=== PATIENT | male | born 1990 | race Caucasian/White ===

== ENCOUNTER 2019-11-22 12:06 | Emergency (ER) | payer SELFPAY ==
[2019-11-22] MEDS ORDERED: Aspirin 81 MG Tab.Chew PO ONE (12:29)
[2019-11-22] MEDS ORDERED: Sodium Chloride 0.9% 1,000 ML IV ONE (12:30)
--- NOTE | 2019-11-22 12:55 | EDM.PDOC ---
ED HPI GENERAL MEDICAL PROBLEM - General Chief Complaint: Chest Pain Stated Complaint: PAIN IN ARM Time Seen by Provider: 11/22/19 12:15 Source of Information: Reports: Patient History Limitations: Reports: No Limitations - History of Present Illness INITIAL COMMENTS - FREE TEXT/NARRATIVE: HISTORY AND PHYSICAL: History of present illness: Patient is a 28-year-old male who presents to the ED today with concern of an episode of chest pain that occurred at about 8 this morning. Patient states the episode lasted about 20 minutes and then resolved. Patient states since he woke up this morning he has had some left shoulder discomfort and is not sure if it is related to the chest pain or not. Patient states he did not have any trauma or injury to the shoulder and has been able to use it without pain or difficulty. Patient denies any health history or any current chest pain. Patient denies fever, chills, shortness of breath, or cough. Denies headache, neck stiff ness, change in vision, syncope, or near syncope. Denies nausea, vomiting, abdominal pain, diarrhea, constipation, or dysuria. Has not noted any blood in urine or stool. Patient has been eating and drinking appropriately. Review of systems: As per history of present illness and below otherwise all systems reviewed and negative. Past medical history: As per history of present illness and as reviewed below otherwise noncontributory. Surgical history: As per history of present illness and as reviewed below otherwise noncontributory. Social history: See social history for further information Family history: As per history of present illness and as reviewed below otherwise noncontributory. Physical exam: General: Patient is alert, oriented, and in no acute distress. Patient sitting comfortably on exam table. HEENT: Atraumatic, normocephalic, pupils equal and reactive bilaterally, negative for conjunctival pallor or scleral icterus, mucous membranes moist, TMs normal bilaterally, throat clear, neck supple, nontender, trachea midline. No drooling or trismus noted. No meningeal signs. No hot potato voice noted. Lungs: Clear to auscultation, breath sounds equal bilaterally, chest nontender. Heart: S1S2, regular rate and rhythm without overt murmur Abdomen: Soft, nondistended, nontender. Negative for masses or hepatosplenomegaly. Negative for costovertebral tenderness. Pelvis: Stable nontender. Genitourinary: Deferred. Rectal: Deferred. Skin: Intact, warm, dry. No lesions or rashes noted. Extremities: Atraumatic, negative for cords or calf pain. Neurovascular unremarkable. Patient has full range of motion of bilateral upper and lower extremities without pain or difficulty. Neuro: Awake, alert, oriented. Cranial nerves II through XII unremarkable. Cerebellum unremarkable. Motor and sensory unremarkable throughout. Exam nonfocal. Notes: Discussed importance for follow-up with primary care provider. Voices understanding and is agreeable to plan of care. Denies any further questions or concerns at this time. Diagnostics: CBC, CMP, UA, EKG, CXR, Troponin Therapeutics: ASA Prescription: None Impression: Atypical chest pain episode Shoulder pain, left Plan: 1. You can alternate ibuprofen and Tylenol as directed for pain and discomfort. 2. Follow-up with your primary care provider as discussed. Return to the ED as needed and as discussed. Definitive disposition and diagnosis as appropriate pending reevaluation and review of above. chest Pain Score (Numeric/FACES): 3 - Related Data Allergies Allergy/AdvReac Type Severity Reaction Status Date / Time No Known Allergies Allergy Verified 11/22/19 12:33 Home Meds: Home Meds . [No Known Home Meds] 11/22/19 [History] Past Medical History - Past Health History Medical/Surgical History: Denies Medical/Surgical History - Infectious Disease History Infectious Disease History: Reports: None Social & Family History - Family History Family Medical History: Noncontributory - Tobacco Use Smoking Status *Q: Current Every Day Smoker Years of Tobacco use: 10 Packs/Tins Daily: 1 - Caffeine Use Caffeine Use: Reports: Coffee - Recreational Drug Use Recreational Drug Use: No ED ROS GENERAL - Review of Systems Review Of Systems: Comprehensive ROS is negative, except as noted in HPI. ED EXAM, GENERAL - Physical Exam Exam: See Below (see dictation) Course - Vital Signs Last Recorded V/S: Last Vital Signs Temp 97.1 F 11/22/19 12:33 Pulse 106 H 11/22/19 12:33 Resp 16 11/22/19 12:33 BP 140/84 11/22/19 12:33 Pulse Ox 98 11/22/19 12:33 - Orders/Labs/Meds Orders: Active Orders 24 hr Category Date Time Status EKG Documentation Completion [RC] STAT Care 11/22/19 12:26 Active Labs: Laboratory Tests 11/22/19 11/22/19 11/22/19 Range/Units 12:40 12:40 12:48 WBC 7.30 (4.0-11.0) K/uL RBC 5.05 (4.50-5.90) M/uL Hgb 16.8 (13.0-17.0) g/dL Hct 49.2 (38.0-50.0) % MCV 97.4 (80.0-98.0) fL MCH 33.3 H (27.0-32.0) pg MCHC 34.1 (31.0-37.0) g/dL RDW Std Deviation 46.2 (28.0-62.0) fl RDW Coeff of Florencio 13 (11.0-15.0) % Plt Count 206 (150-400) K/uL MPV 11.00 (7.40-12.00) fL Neut % (Auto) 61.2 (48.0-80.0) % Lymph % (Auto) 28.5 (16.0-40.0) % Howell % (Auto) 8.6 (0.0-15.0) % Eos % (Auto) 1.4 (0.0-7.0) % Baso % (Auto) 0.3 (0.0-1.5) % Neut # (Auto) 4.5 (1.4-5.7) K/uL Lymph # (Auto) 2.1 (0.6-2.4) K/uL Howell # (Auto) 0.6 (0.0-0.8) K/uL Eos # (Auto) 0.1 (0.0-0.7) K/uL Baso # (Auto) 0.0 (0.0-0.1) K/uL Nucleated RBC % 0.0 /100WBC Nucleated RBCs # 0 K/uL Sodium 138 (136-148) mmol/L Potassium 4.0 (3.5-5.1) mmol/L Chloride 101 (98-107) mmol/L Carbon Dioxide 28.0 (21.0-32.0) mmol/L BUN 11 (7.0-18.0) mg/dL Creatinine 0.9 (0.8-1.3) mg/dL Est Cr Clr Drug Dosing 140.81 mL/min Estimated GFR (MDRD) > 60.0 ml/min Glucose 104 (74-106) mg/dL Calcium 8.5 (8.5-10.1) mg/dL Total Bilirubin 0.3 (0.2-1.0) mg/dL AST 29 (15-37) IU/L ALT 43 (14-63) IU/L Alkaline Phosphatase 81 (46-116) U/L Troponin I < 0.050 (0.000-0.056) ng/mL Total Protein 7.9 (6.4-8.2) g/dL Albumin 3.8 (3.4-5.0) g/dL Globulin 4.1 H (2.6-4.0) g/dL Albumin/Globulin Ratio 0.9 (0.9-1.6) Urine Color YELLOW Urine Appearance CLEAR Urine pH 7.5 (5.0-8.0) Ur Specific [place] 1.020 (1.001-1.035) Urine Protein NEGATIVE (NEGATIVE) mg/dL Urine Glucose (UA) NEGATIVE (NEGATIVE) mg/dL Urine Ketones NEGATIVE (NEGATIVE) mg/dL Urine Occult Blood NEGATIVE (NEGATIVE) Urine Nitrite NEGATIVE (NEGATIVE) Urine Bilirubin NEGATIVE (NEGATIVE) Urine Urobilinogen 0.2 (<2.0) EU/dL Ur Leukocyte Esterase NEGATIVE (NEGATIVE) Meds: Medications Discontinued Medications Generic Name Dose Route Start Last Admin Trade Name Freq PRN Reason Stop Dose Admin Aspirin 324 mg 11/22/19 12:29 11/22/19 12:36 Aspirin PO 11/22/19 12:30 324 mg ONETIME ONE Administration Sodium Chloride 1,000 mls @ 999 mls/hr 11/22/19 12:30 11/22/19 12:36 Normal Saline IV 11/22/19 13:30 999 mls/hr STAT ONE Administration Departure - Departure Time of Disposition: 13:40 Disposition: Home, Self-Care 01 Clinical Impression: Chest pain Qualifiers: Chest pain type: unspecified Qualified Code(s): R07.9 - Chest pain, unspecified Left shoulder pain Qualifiers: Chronicity: acute Qualified Code(s): M25.512 - Pain in left shoulder - Discharge Information Referrals: PCP,Not In Area [Primary Care Provider] - Forms: ED Department Discharge Additional Instructions: The following information is given to patients seen in the emergency department who are being discharged to home. This information is to outline your options for follow-up care. We provide all patients seen in our emergency department with a follow-up referral. The need for follow-up, as well as the timing and circumstances, are variable depending upon the specifics of your emergency department visit. If you don't have a primary care physician on staff, we will provide you with a referral. We always advise you to contact your personal physician following an emergency department visit to inform them of the circumstance of the visit and for follow-up with them and/or the need for any referrals to a consulting specialist. The emergency department will also refer you to a specialist when appropriate. This referral assures that you have the opportunity for follow-up care with a specialist. All of these measure are taken in an effort to provide you with optimal care, which includes your follow-up. Under all circumstances we always encourage you to contact your private physician who remains a resource for coordinating your care. When calling for follow-up care, please make the office aware that this follow-up is from your recent emergency room visit. If for any reason you are refused follow-up, please contact the [facility] Emergency Department at and asked to speak to the emergency department charge nurse. [facility] Primary [facility] [address] [place] [address] [address] [facility] Specialty Care - [facility] Professional Building [address] [facility] [place] [address] 1. You can alternate ibuprofen and Tylenol as directed for pain and discomfort. 2. Follow-up with your primary care provider/orthopedic provider as discussed. Return to the ED as needed and as discussed. Sepsis Event Note - Focused Exam Vital Signs: Vital Signs Temp Pulse Resp BP Pulse Ox 11/22/19 12:33 97.1 F 106 H 16 140/84 98 Date Exam was Performed: 11/22/19 Time Exam was Performed: 13:39 - My Orders Last 24 Hours: My Active Orders 11/22/19 12:26 EKG Documentation Completion [RC] STAT - Assessment/Plan Last 24 Hours: My Active Orders 11/22/19 12:26 EKG Documentation Completion [RC] STAT
[2019-11-22 13:11] LABS: BLOOD UREA NITROGEN,BUN 11 mg/dL (7.0-18.0); CHLORIDE,CL 101 mmol/L (98-107); GLUCOSE RANDOM 104 mg/dL (74-106); SODIUM,NA 138 mmol/L (136-148)
--- NOTE | 2019-11-22 13:39 | CR ---
INDICATION: Shortness of breath TECHNIQUE: Chest radiograph 1 view on 2 films COMPARISON: None FINDINGS: Mediastinum: The mediastinum is normal in appearance. The heart silhouette is normal in size and morphology. Lung: Both lungs are unremarkable in appearance. No sign of pleural effusion seen. No pneumothorax is identified. Bone and Soft tissue: Unremarkable for age. IMPRESSION: 1. No acute cardiopulmonary disease is seen. Dictated by: Magen Bonilla MD @ 11/22/2019 13:37:12 (Electronically Signed)
== END 2019-11-22 13:58 | disposition home or self-care (01) ==
LOC: MW.ED 12:06
DX: R07.89 Other chest pain (principal); M25.512 Pain in left shoulder; F17.210 Nicotine dependence, cigarettes, uncomplicated
CPT/HCPCS: 36415; 71045; 80053; 81003; 84484; 85025; 93005; 96360; 99285; A9270; J7030; 99283

== ENCOUNTER 2020-02-21 13:26 | Emergency (ER) | payer SELFPAY ==
[2020-02-21 14:53] LABS: ACETAMINOPHEN <2.0 ug/mL
[2020-02-21 14:57] LABS: BLOOD UREA NITROGEN,BUN 13 mg/dL (7.0-18.0); CARBON DIOXIDE,CO2 22.6 mmol/L (21.0-32.0); CHLORIDE,CL 101 mmol/L (98-107); GLUCOSE RANDOM 88 mg/dL (74-106); POTASSIUM,K 3.9 mmol/L (3.5-5.1); SODIUM,NA 141 mmol/L (136-148)
[2020-02-21] MEDS ORDERED: Nicotine 21 MG/24 Hr Patch TRDERM ONE (15:24)
--- NOTE | 2020-02-21 18:33 | EDM.PDOC ---
<Jarrell Alejo - Last Filed: 02/21/20 20:25> ED HPI GENERAL MEDICAL PROBLEM - General Chief Complaint: Behavioral/Psych Stated Complaint: MENTAL EVAL Time Seen by Provider: 02/21/20 13:31 - History of Present Illness INITIAL COMMENTS - FREE TEXT/NARRATIVE: Patient is 29 old male with alcohol use presenting with suicidal ideations. Patient was signed out from daytime attending pending psychiatric placement and lab reevaluation. Patient's labs were reviewed and did not demonstrate any acute abnormalities requiring intervention. Patient was examined at bedside and still endorsing active suicidal ideations without specific plan. Patient is not homicidal or hearing voices. There is no evidence of alcohol withdrawal at the time of my examination. Numerous psychiatric facilities were called overnight and [facility] is willing to accept the patient in the morning once his alcohol level is 0 and if the patient wishes to come voluntarily for treatment. I spoke with Javier Chavez the nurse practitioner for psychiatry who informed me of these facilities policies and procedures. Another potential option is to transfer the patient to [facility] however this will also require the patient to stay overnight and they hospital for morning time transfer. The current plan is for the patient to be kept on a one-to-one observation for suicidal ideations. Patient is not requiring medication or restraints at this time. Since patient is on psychiatric hold, he will be monitored for elopement. In addition, CIWA score will be calculated every 4 hours throughout the night for evidence of alcohol withdrawal. Patient's current CIWA is 0. Interventions will be performed as necessary if evidence of alcohol withdrawal present themselves. At this time, the patient is cooperative with plan for morning transfer. Patient is currently medically stable for psychiatric hold. - Related Data Allergies Allergy/AdvReac Type Severity Reaction Status Date / Time No Known Allergies Allergy Verified 02/21/20 13:34 Home Meds: Home Meds . [No Known Home Meds] 11/22/19 [History] Course - Vital Signs Last Recorded V/S: Last Vital Signs Temp 36.4 C 02/21/20 13:42 Pulse 78 02/22/20 08:30 Resp 18 02/22/20 08:30 BP 140/87 02/22/20 08:30 Pulse Ox 99 02/22/20 08:30 - Orders/Labs/Meds Labs: Laboratory Tests 02/21/20 02/21/20 02/21/20 Range/Units 13:55 14:13 14:13 WBC 8.17 (4.0-11.0) K/uL RBC 4.88 (4.50-5.90) M/uL Hgb 16.5 (13.0-17.0) g/dL Hct 47.8 (38.0-50.0) % MCV 98.0 (80.0-98.0) fL MCH 33.8 H (27.0-32.0) pg MCHC 34.5 (31.0-37.0) g/dL RDW Std Deviation 46.1 (28.0-62.0) fl RDW Coeff of Florencio 13 (11.0-15.0) % Plt Count 216 (150-400) K/uL MPV 10.50 (7.40-12.00) fL Neut % (Auto) 69.3 (48.0-80.0) % Lymph % (Auto) 25.1 (16.0-40.0) % [place] % (Auto) 5.4 (0.0-15.0) % Eos % (Auto) 0.1 (0.0-7.0) % Baso % (Auto) 0.1 (0.0-1.5) % Neut # (Auto) 5.7 (1.4-5.7) K/uL Lymph # (Auto) 2.1 (0.6-2.4) K/uL [place] # (Auto) 0.4 (0.0-0.8) K/uL Eos # (Auto) 0.0 (0.0-0.7) K/uL Baso # (Auto) 0.0 (0.0-0.1) K/uL Nucleated RBC % 0.0 /100WBC Nucleated RBCs # 0 K/uL Sodium 141 (136-148) mmol/L Potassium 3.9 (3.5-5.1) mmol/L Chloride 101 (98-107) mmol/L Carbon Dioxide 22.6 (21.0-32.0) mmol/L BUN 13 (7.0-18.0) mg/dL Creatinine 0.9 (0.8-1.3) mg/dL Est Cr Clr Drug Dosing TNP Estimated GFR (MDRD) > 60.0 ml/min Glucose 88 (74-106) mg/dL Calcium 8.3 L (8.5-10.1) mg/dL Total Bilirubin 0.6 (0.2-1.0) mg/dL AST 25 (15-37) IU/L ALT 34 (14-63) IU/L Alkaline Phosphatase 81 (46-116) U/L Total Protein 8.4 H (6.4-8.2) g/dL Albumin 4.3 (3.4-5.0) g/dL Globulin 4.1 H (2.6-4.0) g/dL Albumin/Globulin Ratio 1.1 (0.9-1.6) Free T4 (0.76-1.46) ng/dL TSH 3rd Generation 0.29 L (0.36-3.74) uIU/mL Salicylates 3.1 (0-20) mg/dL Urine Opiates Screen NEGATIVE (NEGATIVE) Ur Oxycodone Screen NEGATIVE (NEGATIVE) Urine Methadone Screen NEGATIVE (NEGATIVE) Acetaminophen <2.0 ug/mL Ur Barbiturates Screen NEGATIVE (NEGATIVE) Ur Phencyclidine Scrn NEGATIVE (NEGATIVE) Ur Amphetamine Screen NEGATIVE (NEGATIVE) U Methamphetamines Scrn NEGATIVE (NEGATIVE) U Benzodiazepines Scrn NEGATIVE (NEGATIVE) U Cocaine Metab Screen POSITIVE (NEGATIVE) U Marijuana (THC) Screen NEGATIVE (NEGATIVE) Ethyl Alcohol 295 mg/dL 02/21/20 02/21/20 02/21/20 Range/Units 16:06 18:13 18:39 WBC 7.02 (4.0-11.0) K/uL RBC 4.76 (4.50-5.90) M/uL Hgb 16.1 (13.0-17.0) g/dL Hct 46.4 (38.0-50.0) % MCV 97.5 (80.0-98.0) fL MCH 33.8 H (27.0-32.0) pg MCHC 34.7 (31.0-37.0) g/dL RDW Std Deviation 46.3 (28.0-62.0) fl RDW Coeff of Florencio 13 (11.0-15.0) % Plt Count 213 (150-400) K/uL MPV 10.70 (7.40-12.00) fL Neut % (Auto) 63.5 (48.0-80.0) % Lymph % (Auto) 31.5 (16.0-40.0) % [place] % (Auto) 4.8 (0.0-15.0) % Eos % (Auto) 0.1 (0.0-7.0) % Baso % (Auto) 0.1 (0.0-1.5) % Neut # (Auto) 4.5 (1.4-5.7) K/uL Lymph # (Auto) 2.2 (0.6-2.4) K/uL [place] # (Auto) 0.3 (0.0-0.8) K/uL Eos # (Auto) 0.0 (0.0-0.7) K/uL Baso # (Auto) 0.0 (0.0-0.1) K/uL Nucleated RBC % 0.0 /100WBC Nucleated RBCs # 0 K/uL Sodium (136-148) mmol/L Potassium (3.5-5.1) mmol/L Chloride (98-107) mmol/L Carbon Dioxide (21.0-32.0) mmol/L BUN (7.0-18.0) mg/dL Creatinine (0.8-1.3) mg/dL Est Cr Clr Drug Dosing Estimated GFR (MDRD) ml/min Glucose (74-106) mg/dL Calcium (8.5-10.1) mg/dL Total Bilirubin (0.2-1.0) mg/dL AST (15-37) IU/L ALT (14-63) IU/L Alkaline Phosphatase (46-116) U/L Total Protein (6.4-8.2) g/dL Albumin (3.4-5.0) g/dL Globulin (2.6-4.0) g/dL Albumin/Globulin Ratio (0.9-1.6) Free T4 (0.76-1.46) ng/dL TSH 3rd Generation (0.36-3.74) uIU/mL Salicylates 3.2 (0-20) mg/dL Urine Opiates Screen NEGATIVE (NEGATIVE) Ur Oxycodone Screen NEGATIVE (NEGATIVE) Urine Methadone Screen NEGATIVE (NEGATIVE) Acetaminophen ug/mL Ur Barbiturates Screen NEGATIVE (NEGATIVE) Ur Phencyclidine Scrn NEGATIVE (NEGATIVE) Ur Amphetamine Screen NEGATIVE (NEGATIVE) U Methamphetamines Scrn NEGATIVE (NEGATIVE) U Benzodiazepines Scrn NEGATIVE (NEGATIVE) U Cocaine Metab Screen POSITIVE (NEGATIVE) U Marijuana (THC) Screen NEGATIVE (NEGATIVE) Ethyl Alcohol 261 mg/dL 02/21/20 Range/Units 18:39 WBC (4.0-11.0) K/uL RBC (4.50-5.90) M/uL Hgb (13.0-17.0) g/dL Hct (38.0-50.0) % MCV (80.0-98.0) fL MCH (27.0-32.0) pg MCHC (31.0-37.0) g/dL RDW Std Deviation (28.0-62.0) fl RDW Coeff of Florencio (11.0-15.0) % Plt Count (150-400) K/uL MPV (7.40-12.00) fL Neut % (Auto) (48.0-80.0) % Lymph % (Auto) (16.0-40.0) % [place] % (Auto) (0.0-15.0) % Eos % (Auto) (0.0-7.0) % Baso % (Auto) (0.0-1.5) % Neut # (Auto) (1.4-5.7) K/uL Lymph # (Auto) (0.6-2.4) K/uL [place] # (Auto) (0.0-0.8) K/uL Eos # (Auto) (0.0-0.7) K/uL Baso # (Auto) (0.0-0.1) K/uL Nucleated RBC % /100WBC Nucleated RBCs # K/uL Sodium 141 (136-148) mmol/L Potassium 3.7 (3.5-5.1) mmol/L Chloride 102 (98-107) mmol/L Carbon Dioxide 21.8 (21.0-32.0) mmol/L BUN 12 (7.0-18.0) mg/dL Creatinine 0.8 (0.8-1.3) mg/dL Est Cr Clr Drug Dosing 152.59 Estimated GFR (MDRD) > 60.0 ml/min Glucose 76 (74-106) mg/dL Calcium 8.5 (8.5-10.1) mg/dL Total Bilirubin (0.2-1.0) mg/dL AST (15-37) IU/L ALT (14-63) IU/L Alkaline Phosphatase (46-116) U/L Total Protein (6.4-8.2) g/dL Albumin (3.4-5.0) g/dL Globulin (2.6-4.0) g/dL Albumin/Globulin Ratio (0.9-1.6) Free T4 0.99 (0.76-1.46) ng/dL TSH 3rd Generation (0.36-3.74) uIU/mL Salicylates 2.9 (0-20) mg/dL Urine Opiates Screen (NEGATIVE) Ur Oxycodone Screen (NEGATIVE) Urine Methadone Screen (NEGATIVE) Acetaminophen <2.0 ug/mL Ur Barbiturates Screen (NEGATIVE) Ur Phencyclidine Scrn (NEGATIVE) Ur Amphetamine Screen (NEGATIVE) U Methamphetamines Scrn (NEGATIVE) U Benzodiazepines Scrn (NEGATIVE) U Cocaine Metab Screen (NEGATIVE) U Marijuana (THC) Screen (NEGATIVE) Ethyl Alcohol 208 mg/dL Meds: Medications Discontinued Medications Generic Name Dose Route Start Last Admin Trade Name Tiffany PRN Reason Stop Dose Admin Nicotine 21 mg 02/21/20 15:24 02/21/20 15:39 Habitrol TRDERM 02/21/20 15:25 21 mg ONETIME ONE Administration Nicotine 21 mg 02/22/20 08:29 02/22/20 08:45 Habitrol TRDERM 02/22/20 08:30 21 mg ONETIME ONE Administration Departure - Departure Disposition: DC[facility] 05 Clinical Impression: Suicidal ideation, Alcohol intoxication - Discharge Information Referrals: PCP,None [Primary Care Provider] - Forms: ED Department Discharge Sepsis Event Note - Focused Exam Vital Signs: Vital Signs Pulse Resp BP Pulse Ox 02/22/20 08:30 78 18 140/87 99 02/22/20 02:00 81 109/65 02/22/20 01:00 82 16 119/67 95 02/22/20 00:00 94 100/54 L 02/21/20 23:00 97 16 102/54 L 95 02/21/20 22:00 91 17 113/63 97 Date Exam was Performed: 02/21/20 Time Exam was Performed: 20:25 <Walter Ring - Last Filed: 02/22/20 09:08> ED HPI GENERAL MEDICAL PROBLEM - History of Present Illness INITIAL COMMENTS - FREE TEXT/NARRATIVE: HPI 29-year-old male presents with acute on chronic suicidal ideation and poorly articulate plans for self-harm. Patient reports long-standing depression, anxiety, and thoughts of harming himself. Patient reports that his family recently left him (would not further elaborate), and that he lost his job in the [employer]. Patient reports that he has thought of shooting himself. Patient drinks daily. Denies further drug use. Denies auditory or visual hallucinations. Patient suspects that he may have untreated anxiety. No prior mental health care hospitalizations or psychiatric care. Denies known medical conditions or current treatment for a medical conditions. Patient is originally from [place], no strong social supports at home. Patient notes that he recently sustained 2 scratches on his left hand from his cat. M/S/F/SocHx notable for: we see HPI; remainder reviewed with patient and in chart. ROS: Negative constitutional, eye, cardiovascular, pulmonary, GI, , MSK, skin , neurologic, psychiatric, endocrine unless noted in the HPI. Exam HR 117, RR 18, BP 134/78, T 36.4C, SaO2 95% on room air. Gen: Pleasant, nontoxic-appearing, resting comfortably. HEENT: normocephalic, atraumatic, PEERL, EOMI. Resp: clear to auscultation bilaterally, unlabored respirations with a normal work of breathing Card: regular rate and rhythm GI: non-tender, non-distended. MSK: No visible deformities, strength and tone within normal limits. Skin: superficial scratches on the base of the left thumb on the dorsum of the hand, no surrounding erythema, warmth, tenderness otherwise normal color with no visible lesions. Neuro: alert and oriented 3, no facial asymmetry. Mild slurring of speech. Psych: depressed mood and flat affect. Labs (initial): WBC 8.2, HB 16.5, sodium 141, potassium 3.9, AST 25, ALT 34, TSH 0.29, acetaminophen <2.0, EtOH (2:13 PM) 295, (5:56 PM) 261. UDS with cocaine metabolites. salicylates (2:13 PM) 3.1, salicylates (4:06 PM) 3.2. Labs (repeat): pending. MDM Previous chart, nursing note, and vitals reviewed. A: 29-year-old male presents with acute on chronic suicidal ideation and poorly articulate plans for self-harm. DDx: suicidal ideation, suicidal gesture, depression, overdose, intoxication, infectious process, thyroid, electrolyte or hematologic abnormalities. Medical evaluation: history and exam consistent with mild impairment from alcohol, this is congruent with labs, no evidence of an active infectious process. Acetaminophen levels are below detection, salicylate is detectable, patient denies taking any salicylate containing compounds, repeat approximately one hour later with a mild increase in salicylates. TSH is minimally below the normal limit, however the patient is without a hyperthyroid toxidrome. UDS notable for cocaine metabolites, this is not consistent with the patient stated history of no drug use (repeat history there with patient saying he uses Kratom) . CBC and BMP were reviewed and were within acceptable limits. Due to the patients significant psychosocial stressors, intoxication, suicidal ideation with a plan (minimized with full engagement with treatment), and concern for lack of candor, the patient is felt to be at moderate to high risk, and he was placed on a mental health hold. While in the emergency department the patient was placed on mental health hold, the patient eloped from the department and was returned to the ED by law enforcement. Labs and a focused history and exam were repeated. ED Course: repeat laboratory studies pending at time of patient care transfer to the overnight ED physician. Impression: suicidal ideation, intoxication. Past Medical History - Past Health History Medical/Surgical History: Denies Medical/Surgical History Psychiatric History: Reports: Anxiety, Depression - Infectious Disease History Infectious Disease History: Reports: None Social & Family History - Family History Family Medical History: Noncontributory - Tobacco Use Smoking Status *Q: Current Every Day Smoker Years of Tobacco use: 11 Packs/Tins Daily: 1 - Caffeine Use Caffeine Use: Reports: Coffee, Energy Drinks, Soda - Alcohol Use Days Per Week of Alcohol Use: 7 Number of Drinks Per Day: 6 Total Drinks Per Week: 42 - Recreational Drug Use Recreational Drug Use: No ED ROS GENERAL - Review of Systems Review Of Systems: See Below ED EXAM, GENERAL - Physical Exam Exam: See Below Departure - Departure Time of Disposition: 18:32 Sepsis Event Note - Evaluation Sepsis Screening Result: No Definite Risk - Focused Exam Date Exam was Performed: 02/22/20 Time Exam was Performed: 09:08
[2020-02-21 19:15] LABS: BLOOD UREA NITROGEN,BUN 12 mg/dL (7.0-18.0); CARBON DIOXIDE,CO2 21.8 mmol/L (21.0-32.0); CHLORIDE,CL 102 mmol/L (98-107); GLUCOSE RANDOM 76 mg/dL (74-106); POTASSIUM,K 3.7 mmol/L (3.5-5.1); SODIUM,NA 141 mmol/L (136-148)
[2020-02-21 19:16] LABS: ACETAMINOPHEN <2.0 ug/mL
[2020-02-22] MEDS ORDERED: Nicotine 21 MG/24 Hr Patch TRDERM ONE (08:29)
--- NOTE | 2020-02-22 09:09 | EDM.PDOC ---
ED HPI GENERAL MEDICAL PROBLEM - General Chief Complaint: Behavioral/Psych Stated Complaint: MENTAL EVAL Time Seen by Provider: 02/21/20 13:31 - History of Present Illness INITIAL COMMENTS - FREE TEXT/NARRATIVE: Emergency Medicine Physician Handoff Note Verbal report from Dr. Alejo at 7:00 AM, 04/21/2020. Summary: 29-year-old male with history of polysubstance abuse, SI, and recent multiple psychosocial stressors (relationship/family loss, job loss), presented intoxicated with SI and a poorly articulated plan; pending mental health placement. Evaluation: I independently reviewed the prior provider's chart, nursing and triage note(s) , vitals - and when available - labs, EKGs, and imaging studies. 8:30 AM - nicotine patch ordered. 09:06 - repeat evaluation patient. Patient now clinically sober, denies any further suicidal thoughts or plans. Patient reports that he has financial resources, peers in the community, and will cease drinking alcohol and follow up on an outpatient basis. Patient with good insight and awareness. Reviewed return to care precautions and need for further outpatient care. Disposition: discharge with PCP follow-up recommended. Impression: alcohol intoxication, suicidal ideation (resolved). - Related Data Allergies Allergy/AdvReac Type Severity Reaction Status Date / Time No Known Allergies Allergy Verified 02/21/20 13:34 Home Meds: Home Meds . [No Known Home Meds] 11/22/19 [History] Past Medical History - Past Health History Medical/Surgical History: Denies Medical/Surgical History Psychiatric History: Reports: Anxiety, Depression - Infectious Disease History Infectious Disease History: Reports: None Social & Family History - Family History Family Medical History: Noncontributory - Tobacco Use Smoking Status *Q: Current Every Day Smoker Years of Tobacco use: 11 Packs/Tins Daily: 1 - Caffeine Use Caffeine Use: Reports: Coffee, Energy Drinks, Soda - Alcohol Use Days Per Week of Alcohol Use: 7 Number of Drinks Per Day: 6 Total Drinks Per Week: 42 - Recreational Drug Use Recreational Drug Use: No ED ROS GENERAL - Review of Systems Review Of Systems: See Below ED EXAM, GENERAL - Physical Exam Exam: See Below Course - Vital Signs Last Recorded V/S: Last Vital Signs Temp 36.4 C 02/21/20 13:42 Pulse 78 02/22/20 08:30 Resp 18 02/22/20 08:30 BP 140/87 02/22/20 08:30 Pulse Ox 99 02/22/20 08:30 - Orders/Labs/Meds Labs: Laboratory Tests 02/21/20 02/21/20 02/21/20 Range/Units 13:55 14:13 14:13 WBC 8.17 (4.0-11.0) K/uL RBC 4.88 (4.50-5.90) M/uL Hgb 16.5 (13.0-17.0) g/dL Hct 47.8 (38.0-50.0) % MCV 98.0 (80.0-98.0) fL MCH 33.8 H (27.0-32.0) pg MCHC 34.5 (31.0-37.0) g/dL RDW Std Deviation 46.1 (28.0-62.0) fl RDW Coeff of Florencio 13 (11.0-15.0) % Plt Count 216 (150-400) K/uL MPV 10.50 (7.40-12.00) fL Neut % (Auto) 69.3 (48.0-80.0) % Lymph % (Auto) 25.1 (16.0-40.0) % Vermilion % (Auto) 5.4 (0.0-15.0) % Eos % (Auto) 0.1 (0.0-7.0) % Baso % (Auto) 0.1 (0.0-1.5) % Neut # (Auto) 5.7 (1.4-5.7) K/uL Lymph # (Auto) 2.1 (0.6-2.4) K/uL Vermilion # (Auto) 0.4 (0.0-0.8) K/uL Eos # (Auto) 0.0 (0.0-0.7) K/uL Baso # (Auto) 0.0 (0.0-0.1) K/uL Nucleated RBC % 0.0 /100WBC Nucleated RBCs # 0 K/uL Sodium 141 (136-148) mmol/L Potassium 3.9 (3.5-5.1) mmol/L Chloride 101 (98-107) mmol/L Carbon Dioxide 22.6 (21.0-32.0) mmol/L BUN 13 (7.0-18.0) mg/dL Creatinine 0.9 (0.8-1.3) mg/dL Est Cr Clr Drug Dosing TNP Estimated GFR (MDRD) > 60.0 ml/min Glucose 88 (74-106) mg/dL Calcium 8.3 L (8.5-10.1) mg/dL Total Bilirubin 0.6 (0.2-1.0) mg/dL AST 25 (15-37) IU/L ALT 34 (14-63) IU/L Alkaline Phosphatase 81 (46-116) U/L Total Protein 8.4 H (6.4-8.2) g/dL Albumin 4.3 (3.4-5.0) g/dL Globulin 4.1 H (2.6-4.0) g/dL Albumin/Globulin Ratio 1.1 (0.9-1.6) Free T4 (0.76-1.46) ng/dL TSH 3rd Generation 0.29 L (0.36-3.74) uIU/mL Salicylates 3.1 (0-20) mg/dL Urine Opiates Screen NEGATIVE (NEGATIVE) Ur Oxycodone Screen NEGATIVE (NEGATIVE) Urine Methadone Screen NEGATIVE (NEGATIVE) Acetaminophen <2.0 ug/mL Ur Barbiturates Screen NEGATIVE (NEGATIVE) Ur Phencyclidine Scrn NEGATIVE (NEGATIVE) Ur Amphetamine Screen NEGATIVE (NEGATIVE) U Methamphetamines Scrn NEGATIVE (NEGATIVE) U Benzodiazepines Scrn NEGATIVE (NEGATIVE) U Cocaine Metab Screen POSITIVE (NEGATIVE) U Marijuana (THC) Screen NEGATIVE (NEGATIVE) Ethyl Alcohol 295 mg/dL 02/21/20 02/21/20 02/21/20 Range/Units 16:06 18:13 18:39 WBC 7.02 (4.0-11.0) K/uL RBC 4.76 (4.50-5.90) M/uL Hgb 16.1 (13.0-17.0) g/dL Hct 46.4 (38.0-50.0) % MCV 97.5 (80.0-98.0) fL MCH 33.8 H (27.0-32.0) pg MCHC 34.7 (31.0-37.0) g/dL RDW Std Deviation 46.3 (28.0-62.0) fl RDW Coeff of Florencio 13 (11.0-15.0) % Plt Count 213 (150-400) K/uL MPV 10.70 (7.40-12.00) fL Neut % (Auto) 63.5 (48.0-80.0) % Lymph % (Auto) 31.5 (16.0-40.0) % Vermilion % (Auto) 4.8 (0.0-15.0) % Eos % (Auto) 0.1 (0.0-7.0) % Baso % (Auto) 0.1 (0.0-1.5) % Neut # (Auto) 4.5 (1.4-5.7) K/uL Lymph # (Auto) 2.2 (0.6-2.4) K/uL Vermilion # (Auto) 0.3 (0.0-0.8) K/uL Eos # (Auto) 0.0 (0.0-0.7) K/uL Baso # (Auto) 0.0 (0.0-0.1) K/uL Nucleated RBC % 0.0 /100WBC Nucleated RBCs # 0 K/uL Sodium (136-148) mmol/L Potassium (3.5-5.1) mmol/L Chloride (98-107) mmol/L Carbon Dioxide (21.0-32.0) mmol/L BUN (7.0-18.0) mg/dL Creatinine (0.8-1.3) mg/dL Est Cr Clr Drug Dosing Estimated GFR (MDRD) ml/min Glucose (74-106) mg/dL Calcium (8.5-10.1) mg/dL Total Bilirubin (0.2-1.0) mg/dL AST (15-37) IU/L ALT (14-63) IU/L Alkaline Phosphatase (46-116) U/L Total Protein (6.4-8.2) g/dL Albumin (3.4-5.0) g/dL Globulin (2.6-4.0) g/dL Albumin/Globulin Ratio (0.9-1.6) Free T4 (0.76-1.46) ng/dL TSH 3rd Generation (0.36-3.74) uIU/mL Salicylates 3.2 (0-20) mg/dL Urine Opiates Screen NEGATIVE (NEGATIVE) Ur Oxycodone Screen NEGATIVE (NEGATIVE) Urine Methadone Screen NEGATIVE (NEGATIVE) Acetaminophen ug/mL Ur Barbiturates Screen NEGATIVE (NEGATIVE) Ur Phencyclidine Scrn NEGATIVE (NEGATIVE) Ur Amphetamine Screen NEGATIVE (NEGATIVE) U Methamphetamines Scrn NEGATIVE (NEGATIVE) U Benzodiazepines Scrn NEGATIVE (NEGATIVE) U Cocaine Metab Screen POSITIVE (NEGATIVE) U Marijuana (THC) Screen NEGATIVE (NEGATIVE) Ethyl Alcohol 261 mg/dL 02/21/20 Range/Units 18:39 WBC (4.0-11.0) K/uL RBC (4.50-5.90) M/uL Hgb (13.0-17.0) g/dL Hct (38.0-50.0) % MCV (80.0-98.0) fL MCH (27.0-32.0) pg MCHC (31.0-37.0) g/dL RDW Std Deviation (28.0-62.0) fl RDW Coeff of Florencio (11.0-15.0) % Plt Count (150-400) K/uL MPV (7.40-12.00) fL Neut % (Auto) (48.0-80.0) % Lymph % (Auto) (16.0-40.0) % Vermilion % (Auto) (0.0-15.0) % Eos % (Auto) (0.0-7.0) % Baso % (Auto) (0.0-1.5) % Neut # (Auto) (1.4-5.7) K/uL Lymph # (Auto) (0.6-2.4) K/uL Vermilion # (Auto) (0.0-0.8) K/uL Eos # (Auto) (0.0-0.7) K/uL Baso # (Auto) (0.0-0.1) K/uL Nucleated RBC % /100WBC Nucleated RBCs # K/uL Sodium 141 (136-148) mmol/L Potassium 3.7 (3.5-5.1) mmol/L Chloride 102 (98-107) mmol/L Carbon Dioxide 21.8 (21.0-32.0) mmol/L BUN 12 (7.0-18.0) mg/dL Creatinine 0.8 (0.8-1.3) mg/dL Est Cr Clr Drug Dosing 152.59 Estimated GFR (MDRD) > 60.0 ml/min Glucose 76 (74-106) mg/dL Calcium 8.5 (8.5-10.1) mg/dL Total Bilirubin (0.2-1.0) mg/dL AST (15-37) IU/L ALT (14-63) IU/L Alkaline Phosphatase (46-116) U/L Total Protein (6.4-8.2) g/dL Albumin (3.4-5.0) g/dL Globulin (2.6-4.0) g/dL Albumin/Globulin Ratio (0.9-1.6) Free T4 0.99 (0.76-1.46) ng/dL TSH 3rd Generation (0.36-3.74) uIU/mL Salicylates 2.9 (0-20) mg/dL Urine Opiates Screen (NEGATIVE) Ur Oxycodone Screen (NEGATIVE) Urine Methadone Screen (NEGATIVE) Acetaminophen <2.0 ug/mL Ur Barbiturates Screen (NEGATIVE) Ur Phencyclidine Scrn (NEGATIVE) Ur Amphetamine Screen (NEGATIVE) U Methamphetamines Scrn (NEGATIVE) U Benzodiazepines Scrn (NEGATIVE) U Cocaine Metab Screen (NEGATIVE) U Marijuana (THC) Screen (NEGATIVE) Ethyl Alcohol 208 mg/dL Meds: Medications Discontinued Medications Generic Name Dose Route Start Last Admin Trade Name Tiffany PRN Reason Stop Dose Admin Nicotine 21 mg 02/21/20 15:24 02/21/20 15:39 Habitrol TRDERM 02/21/20 15:25 21 mg ONETIME ONE Administration Nicotine 21 mg 02/22/20 08:29 02/22/20 08:45 Habitrol TRDERM 02/22/20 08:30 21 mg ONETIME ONE Administration Departure - Departure Time of Disposition: 09:09 Disposition: Home, Self-Care 01 Clinical Impression: Suicidal ideation, Alcohol intoxication - Discharge Information Referrals: PCP,None [Primary Care Provider] - Forms: ED Department Discharge Additional Instructions: You were in seen in the Emergency Department for evaluation of suicidal ideation while you were intoxicated. Please discontinue drinking alcohol, please follow-up within the next 48 hours with a primary care physician for further evaluation and treatment of your suspected depression, alcohol use, and for further care as needed. Please read and follow all of the instructions below. When calling for follow-up care, please make the office aware that this follow- up is from your recent emergency room visit. If for any reason you are refused follow-up, please contact the Emergency Department at and asked to speak to the emergency department charge nurse. Your care today was limited to identifying and treating emergent medical problems only. Many people have subtle differences in their test results that require follow up with their outpatient physician(s) to correctly determine if this represents a normal variation or concerning abnormality with respect to your specific health. The care given to you today was limited to identifying and treating emergent medical problems - you need to request a copy of all of your medical records from today's visit and follow up with your outpatient physician(s) to review both today's visit and your overall health. If you have any new symptoms or if you are at all concerned about your health please return immediately to the emergency department. Information about Suicidal Thinking and/or Behavior If you or someone you love is at risk of suicide, it is important to get help. Call: National Suicide Hotline: . Your mental health professional Get help right away if you or someone: threatens to hurt or kill him/herself Talks of wanting to hurt or kill him/herself Looks for ways to kill him/herself such as with firearms, pills, or other ways to do harm. Suddenly begins to talk or write about , dying, or suicide. Know other signs that require help quickly: Feels hopeless Feels rage, uncontrolled anger, or seeks revenge Acts reckless or takes part in risky behaviors without thinking Feels like there is no way out Increases use of alcohol or drugs Withdraws from friends, family and society Becomes anxious, agitated, unable to sleep or sleeps all the time Has a big change in mood Feels there is no reason to live; no sense of purpose in life Important Information to be aware of: The risk of suicide may increase during a scheduled time away from the hospital or after leaving the hospital. The risk is greatest in the month after leaving the hospital. Take your medicine the way your doctor told you. Never make medicine changes without talking to your treating psychiatrist/medical doctor. Remember many people return to the hospital because they stopped taking their medicine or made medicine changes without talking to their doctor. Keep all psychotherapy appointments and follow your treatment plan. Recovery needs a good treatment plan, which may include medicine, attending support groups and having support from family and/or friends. Major Depressive Disorder (MDD) is the psychiatric diagnosis most commonly linked to someone who commits suicide. If you or someone you know has been diagnosed with MDD, you/they may not be about to think clearly. They may believe the world (and especially their family) is better off without them; they may think the only solution is suicide. Avoid taking any kind of alcohol or drugs. Suicide rates increase with drug and alcohol use. Remove any items from the home that could be used for suicide. Remove firearms, medicines, weapons, ropes, etc. Remember: Firearms are the most common method of suicide by all groups (young, old, white, non-white, male, female). How you can help someone who is suicidal: Be aware of their behavior and learn the warning signs of suicide. Get involved. Be available to show interest and support. Ask if he/she is thinking about suicide. Listen. Allow them to express their feelings. Accept their feelings. Do not microsystems engineer them. Do not discuss or argue about suicide being right or wrong. Do not lecture them on the value of life. Never dare someone to commit suicide. Do not give advice. Do not ask "why"; this can cause them to become defensive. Offer understanding; not sympathy. Do not act shocked, this can cause them to withdraw from you. Remember: Many people think about suicide at some time in their life. Offer hope. Let them know there are other ways to solve a problem. Take action. Remove items that can cause harm. Get help from professionals. Helpful Telephone Numbers: National Suicide Hotline: (9-942-400-KNLX) Other Counties: Call your Mental Health Crisis Hotline or call 911. Prescriptions: If you are uninsured or have financial difficulties with filling your prescription(s), you may consider using a free pharmacy discount service such as [employer] (Pops) or [employer] (KidZui). These services allow you to search for a medication on your phone (or computer) and obtain a coupon that usually has a significant discount from the list doherty at a pharmacy. Your physician as well as [facility] does not have a financial relationship with either of these services. You may also wish to speak with your physician to determine if lower cost prescriptions are possible. Obtaining primary care: 1. [facility] provides pediatrics (children), family medicine (children, adults, and some obstetrical care), and internal medicine (adults). Further specialty care is also available. Same day appointments are available. They may be contacted at [phone] and are open Saturday through Saturday 8 AM to [address] [facility] are located at [facility], [address] [place] [address]. 2. [facility] offers family medicine, internal medicine, women health, and further specialty care. [facility] may be contacted at [phone]. [facility] is located at [address] [facility] [address]. 3. If you have health insurance, please also contact your insurer for a list of accepting providers under your policy, you may contact these providers for further health care. Occupational health: Work related injuries may consider following up with [facility], . Occupational health services are located at [address] [place] [address] and are open Saturday through Saturday from 7: 30 am to 5:00 pm. Obstetrical and Gynecological Care: [facility], , Saturday through Saturday 8 AM to 5 PM. [address] [place] [address]. Eyecare: If you have an eye injury you should follow up with your title i instructional assistant or with [facility], at [phone] or [phone] , they are located at [address] [place] [address]. Dental Care Hola Freeman DDS. [address] [place], [place]. Ph. [phone] Sean Freeman DDS MS. [address] Ph[address] Jhonathan Lorenzana DDS. [address], [place], [place]. Ph. [phone] Juni Cohn DDS. [address] [facility] [address] [place], [place]. Ph. [phone] Akash Swan DDS PC. [address] [place], [place]. Ph. Mark Menchaca DDS. [address] [facility]. Ph. [phone] [facility]. [address] [place], [place]. Ph. [phone] [facility]. [address] [place] [address], [place], [place]. Ph. [phone] [facility] [address] [place] [address]. Ph. [facility]. [address] [place] [address] [address] [place], [place]. Ph. [facility]. [address] [place], [place]. Ph. Sepsis Event Note - Evaluation Sepsis Screening Result: No Definite Risk - Focused Exam Vital Signs: Vital Signs Pulse Resp BP Pulse Ox 02/22/20 08:30 78 18 140/87 99 02/22/20 02:00 81 109/65 02/22/20 01:00 82 16 119/67 95 02/22/20 00:00 94 100/54 L 02/21/20 23:00 97 16 102/54 L 95 02/21/20 22:00 91 17 113/63 97 Date Exam was Performed: 02/22/20 Time Exam was Performed: 09:09
== END 2020-02-22 09:16 | disposition home or self-care (01) ==
LOC: MW.ED 13:26
DX: R45.851 Suicidal ideations (principal); F10.129 Alcohol abuse with intoxication, unspecified; Y90.8 Blood alcohol level of 240 mg/100 ml or more; F17.210 Nicotine dependence, cigarettes, uncomplicated
CPT/HCPCS: 36415; 80048; 80053; 80305; 80307; 84439; 84443; 85025; 99285; A9270; 99284